=== PATIENT | female | born 1985 | race Caucasian/White ===

== ENCOUNTER 2018-11-25 01:11 | Inpatient (IN) ==
--- OUTSIDE RECORDS SUMMARY | 2018-11-25 01:15 | External Medical Summary | Continuity of Care Document ---
:1985 Author Name Dena Riggs, Provider Address Unavailable Unavailable , Care Team Providers Name Role Phone Unavailable Unavailable Unavailable PCP, UNKNOWN Unavailable Unavailable Unavailable Unavailable Unavailable Problems Encounter for anatomic survey (V28.81) (Z36.89) Encounter for supervision of normal firs t in third trimester (V22.0) (Z34.03) Encounter for supervision of normal firs t in second trimester (V22.0) (Z34.02) Allergies and Adverse Reactions No Known Drug Allergies (Allergy) Medications MAIDA RIOS M.D. Refills: 0 Procedures History of Hernia Repair Status: Complet ed Immunizations Influenza On: 23-Jan-2018 Family History Mother Family history of thyroid disease (V18.19) (Z83.49) Status: Active Plan of Treatment Planned Observations Planned Goals not documented Results No Known Results Results not documented Encounters Appointment; Kaiser Cortes M.D. 12-Jun-2018 8:30 Encounter Diagnosis: Problem not documented Appointment; Yoanna Curry M.D. 15-May-2018 8:50 Encounter Diagnosis: Problem not documented Appointment; OBGYN SC1, Ultrasound 19-Apr-2018 9:45 Encounter Diagnosis: Problem not documented Appointment; Vandana Fisher M.D. 19-Apr-2018 9:10 Encounter Diagnosis: Problem not documented Appointment; OB SC1, Procedure Rm 19-Apr-2018 9:10 Encounter Diagnosis: Problem not documented Appointment; OB SC1, Nursing Station 16-Apr-2018 15:00 Encounter Diagnosis: Problem not documented
[2018-11-25 03:14] LABS: Hematocrit (blood only) 39.5 % (37-47); Hemoglobin 13.5 g/dL (12.0-16.0); Mean Corpuscular Volume 94.3 fL (80-100); Mean Platelet Volume 11.8 fL (7.4-10.4); Platelet Count 180 K/uL (130-400); RDW Coefficient of Variation 13.4 % (11.5-14.5); RDW Standard Deviation 46.1 fL (36.4-46.3); Red Blood Count 4.19 M/uL (4.2-5.4); White Blood Count 11.27 K/uL (4.8-10.8)
[2018-11-25 03:21] LABS: Mean Corpuscular Hgb Conc 34.2 g/dL (32-36)
[2018-11-25] MEDS ORDERED: OXYTOCIN 30 UNITS/500 ML BAG IV PRN ×2 (12:20→22:51)
[2018-11-25] MEDS: LACTATED RINGER'S 1,000 ML IV PRN ×2 (12:48→16:05)
[2018-11-25] MEDS ORDERED: BUPIVACAINE 0.25% 30 ML VIAL ONE (15:35)
[2018-11-25] MEDS ORDERED: fentaNYL citrate 100 MCG/2 ML VIAL ONE (15:36)
[2018-11-25] MEDS ORDERED: ePHEDrine sulfate 50 MG/ML AMP ONE (15:36)
[2018-11-25] MEDS ORDERED: fentaNYL 2MCG/ML ROPIV 1.25MG/ML 100 ML BAG EPI ONE (15:36)
--- NOTE | 2018-11-25 17:06 | Anesthesiology Consultation ---
Date of Service November 25, 2018 Assessment & Plan (1) Encounter for pre-operative examination: Chart Review Chart Review: Patient NOT seen in Pre Admission Testing and Acceptable Risk for Labor Epidural Consults Requested none History Height/Weight Height: 5 ft 4.96 in Weight: 84 kg Allergies Allergy/AdvReac Type Severity Reaction Status Date / Time No Known Allergies Allergy Unverified 11/25/18 01:30 Medications Home Medications Medication Instructions Recorded Confirmed Last Taken PNV cmb#95-ferrous fumarate-FA 1 tab PO DAILY 11/25/18 11/25/18 11/24/18 09:00 [] Active Medications Generic Name Dose Route Start Last Admin Trade Name Freq PRN Reason Stop Dose Admin Lactated Ringer's 1,000 mls @ 125 mls/hr 11/25/18 02:42 11/25/18 16:05 Lr IV 11/27/18 02:41 125 mls/hr .Q8H PRN Administration L&D Protocol Protocol Oxytocin 30 units in 500 mls @ 12 mls/hr 11/25/18 12:20 11/25/18 15:30 Pitocin IV 12/25/18 12:19 0.72 units/hr .Q24H PRN 12 mls/hr Labor Induction/Augmentation Titration Protocol 0.72 UNITS/HR Past Medical History Medical History Hernia at age 1.5years old Social History Smoking Status: Never smoker Hx Alcohol Use: No Hx Substance Use: No Physical Exam Vital Signs Last Vital Signs Temp 37.4 C 11/25/18 16:50 Pulse 82 11/25/18 17:02 Resp 20 11/25/18 16:50 BP 115/65 11/25/18 17:01 Pulse Ox 98 11/25/18 17:02 Testing Laboratory Results 11/25/18 03:05
[2018-11-25] MEDS ORDERED: ACETAMINOPHEN 325 MG TAB PO PRN (22:51)
[2018-11-25] MEDS ORDERED: OXYCODONE/ACETAMINOPHEN 5mg/325mg TAB PO PRN (22:51)
[2018-11-25] MEDS ORDERED: BENZOCAINE 20% AER SPR 82.5 GM CAN EXT PRN (22:51)
[2018-11-25] MEDS ORDERED: HYDROCORTISONE ACETATE 25 MG SUPP PR PRN (22:51)
[2018-11-25] MEDS ORDERED: DIPHTHERIA/TETANUS/PERTUSSIS 0.5 ML SYR/VIAL IM ONE (22:51)
[2018-11-25] MEDS ORDERED: SUPERCREAM 0.870% 15 GM JAR EXT PRN (22:51)
[2018-11-25] MEDS ORDERED: BISACODYL 10 MG SUPP PR PRN (22:51)
--- NOTE | 2018-11-25 23:09 | Operative Report ---
DATE OF OPERATION: 11/25/2018 The patient has been followed in my office for care and delivery. She is a 33-year-old 1, para 1. General health is good. Her first trimester ultrasound at 9 weeks gave her a due date of 11/29/2018. Vaginal beta strep negative. Blood type O positive. Rubella immune. She came in spontaneous labor with ruptured membranes. We allowed her to contract on her own for about 11 hours then we started I.V. Pitocin. She began to develop harder contractions. Eventually, she received epidural anesthesia from which she got excellent pain relief. She went to full dilatation, pushed out a live male infant via direct occiput anterior position over an intact perineum. was suctioned through the mouth and the nose. Shoulders were delivered without difficulty. Cord was clamped, cut by the father. Cord blood was taken. With I.V. Pitocin running, the placenta was removed intact. Inspection of the perineum revealed a first-degree laceration. The vaginal mucosa was approximated out beyond the hymenal ring with a running heavy duty Vicryl. Then, 2 interrupted sutures were used to approximate the perineal body in a horizontal fashion. Then, 2 sutures were used to approximate the rectal sphincter area. Then, a running subcuticular suture was used to approximate the perineal skin. Following this, vaginal examination revealed no hematoma formation or sponges in the vagina. Rectal examination revealed no stitches through the rectum. Estimated blood loss was 100 mL. Apgars were 8 and 9 respectively. I attest to the content of the Intraoperative Record and any orders documented therein. Any exception s are noted below.
--- NOTE | 2018-11-26 01:00 | Anesthesia Procedure Note ---
Date of Service November 26, 2018 Anesthesia Post Epidural Note Vital Signs Vital Signs: Temp Pulse Resp BP Pulse Ox 37.8 C H 102 H 18 118/68 94 11/25/18 22:50 11/26/18 00:50 11/26/18 00:05 11/26/18 00:50 11/25/18 22:48 Pain Intensity Bilateral Anterior Abdomen: Pain Intensity: 0 Notes Mental Status: alert / awake / arousable Nausea / Vomiting: adequately controlled Pain: adequately controlled Airway Patency, RR, SpO2: stable & adequate BP & HR: stable & adequate Hydration State: stable & adequate Neuraxial Anesthesia: was administered and sensory block is resolving Anesthetic Complications: no major complications apparent and Pt Satisfied with anesthetic care Epidural: Removed without complications and With tip intact
[2018-11-26] MEDS: ACETAMINOPHEN W/CODEINE #3 1 TAB PO PRN ×2 (03:07→21:08)
[2018-11-26] MEDS: IBUPROFEN 600 MG TAB PO PRN ×3 (03:07→18:52)
[2018-11-26 07:07] LABS: Hematocrit (blood only) 37.1 % (37-47); Hemoglobin 12.4 g/dL (12.0-16.0); Mean Corpuscular Hgb Conc 33.4 g/dL (32-36); Mean Corpuscular Volume 94.4 fL (80-100); Mean Platelet Volume 11.9 fL (7.4-10.4); Platelet Count 165 K/uL (130-400); RDW Coefficient of Variation 13.7 % (11.5-14.5); RDW Standard Deviation 47.4 fL (36.4-46.3); Red Blood Count 3.93 M/uL (4.2-5.4); White Blood Count 15.82 K/uL (4.8-10.8)
[2018-11-26] MEDS: DOCUSATE SODIUM 100 MG CAP PO SCH (08:35)
[2018-11-26] MEDS: FERROUS SULFATE 325 MG TAB PO SCH (08:36)
[2018-11-26] MEDS: PRENATAL VITAMIN 1 TAB PO SCH (08:36)
--- NOTE | 2018-11-26 11:39 | Obstetrical Progress Note ---
Date of Service November 26, 2018 Physical Exam Physical Exam: abdomen soft and non tender vaginal bleeding scant to moderate hgb 12.4 no calf tenderness ambulating well Results & Data Vital Signs (Past 12 Hours) Vital Signs Temp Pulse Pulse Resp BP BP Pulse Ox 11/26/18 08:00 36.7 C 74 18 122/83 97 11/26/18 04:00 37 C 78 18 127/88 11/26/18 01:15 37.3 C 86 18 125/80 11/26/18 00:50 102 H 118/68 11/26/18 00:35 108 H 117/65 11/26/18 00:20 99 H 124/73 11/26/18 00:05 100 H 18 125/82 11/25/18 23:50 18 133/76
[2018-11-26] MEDS ORDERED: BISACODYL 5 MG TABEC PO SCH (20:00)
[2018-11-27] MEDS: IBUPROFEN 600 MG TAB PO PRN (00:03)
[2018-11-27 07:12] LABS: Hematocrit (blood only) 37.4 % (37-47); Hemoglobin 12.7 g/dL (12.0-16.0)
[2018-11-27] MEDS: DOCUSATE SODIUM 100 MG CAP PO SCH (08:12)
[2018-11-27] MEDS: PRENATAL VITAMIN 1 TAB PO SCH (08:12)
[2018-11-27] MEDS: FERROUS SULFATE 325 MG TAB PO SCH (08:12)
--- NOTE | 2018-11-27 08:57 | Obstetrical Progress Note ---
Date of Service November 27, 2018 Physical Exam Physical Exam: abdomen soft and non tender vaginal bleeding scant to moderate no calf tenderness ambulating well Results & Data Vital Signs (Past 12 Hours) Vital Signs Temp Pulse Resp BP Pulse Ox 11/27/18 07:25 36.9 C 64 16 115/75 11/27/18 00:58 36.6 C 73 20 115/75 98 11/26/18 21:00 36.6 C 73 18 117/75
== END 2018-11-27 14:40 | disposition home or self-care (01) | DRG 807 ==
LOC: OPB 01:11 → 4S1 01:13 → 4S2 11-26 01:10